=== PATIENT | male | born 1950 | race Caucasian/White ===

== ENCOUNTER 2019-04-15 11:42 | Inpatient (IN) | payer OTHER, BC ==
[~2019-04-15] VITALS: Ht 188 cm; Wt 108.9 kg
[2019-04-15 11:48] VITALS: BP_SYST 141
[2019-04-15] MEDS ORDERED: IPRATROPIUM/ALBUTEROL SULFATE 3 ML AMPUL.NEB (DUONEB) INH ONE (12:00)
[2019-04-15] MEDS ORDERED: SER100 PO (12:12)
[2019-04-15] MEDS ORDERED: FENO160 PO (12:12)
[2019-04-15] MEDS ORDERED: OXYB5TAB11 PO (12:12)
[2019-04-15] MEDS ORDERED: FERR-69 PO (12:12)
[2019-04-15] MEDS ORDERED: CARB-61 PO (12:12)
[2019-04-15] MEDS ORDERED: ASCO500T20 PO (12:12)
[2019-04-15] MEDS ORDERED: MULT-1089 PO (12:12)
[2019-04-15] MEDS ORDERED: BENZ1TAB8 PO (12:12)
[2019-04-15] MEDS ORDERED: PRO40 PO (12:12)
[2019-04-15] MEDS ORDERED: DOCU-144 PO (12:12)
[2019-04-15] MEDS ORDERED: LEVO330T2 PO (12:12)
[2019-04-15 12:19] LABS: BASOPHILS % (AUTO) 0.7 % (0.0-2.0); EOSINOPHILS # (AUTO) 0.2 K/uL (0.0-0.4); EOSINOPHILS % (AUTO) 4.4 % (0.0-4.0); HEMATOCRIT 42.7 % (36-54); HEMOGLOBIN 13.3 g/dL (14.0-18.0); LYMPHOCYTES # (AUTO) 0.9 K/uL (1.0-5.5); LYMPHOCYTES % (AUTO) 20.2 % (20.5-51.5); MEAN CORPUSCULAR HEMOGLOBIN 26 pg (27-31); MEAN CORPUSCULAR HGB CONC 31 % (32-36); MEAN CORPUSCULAR VOLUME 83 fL (79.0-98.0); MONOCYTES # (AUTO) 0.3 K/uL (0.0-1.0); NEUTROPHILS # (AUTO) 3.1 K/uL (1.8-7.7); NEUTROPHILS % (AUTO) 67.7 % (40.0-70.0); PLATELET COUNT (AUTO) 139 K/uL (130-430); RED BLOOD CELL COUNT(AUTO) 5.14 MIL/uL (4.2-6.2); WHITE BLOOD COUNT (AUTO) 4.6 K/uL (4.8-10.8)
[2019-04-15 12:27] LABS: CALCIUM 9.4 mg/dL (8.4-11.0); CREATININE 0.83 mg/dL (0.55-1.30); POTASSIUM 3.8 mmol/L (3.5-5.1)
[2019-04-15 12:33] LABS: ALBUMIN 3.5 g/dL (3.4-4.8); TOTAL BILIRUBIN 0.5 mg/dL (0.0-1.0)
[2019-04-15] MEDS ORDERED: methylPREDNISolone SOD SUCC/PF 62.5 MG/ML VIAL IVP ONE (14:15)
[2019-04-15 14:38] VITALS: BP_SYST 154
[2019-04-15] MEDS ORDERED: LACT10SO6 PO (15:02)
[2019-04-15] MEDS ORDERED: LEVE500T9 PO (15:02)
[2019-04-15] MEDS ORDERED: D5W 1,000 ML IV PRN (15:36)
[2019-04-15] MEDS ORDERED: cloNIDine HCL 0.1 MG TABLET PO PRN (15:45)
[2019-04-15] MEDS ORDERED: guaiFENesin 200 MG/10 ML UDC PO PRN (15:45)
[2019-04-15] MEDS ORDERED: ZOLPIDEM TARTRATE 5 MG TABLET PO PRN (15:45)
[2019-04-15] MEDS ORDERED: DEXTROSE 50% JECT 50 ML DISP.SYRIN IVP PRN (15:45)
[2019-04-15] MEDS ORDERED: GLUCOSE 15 GM GEL (in 37.5 GM TUBE) PO PRN (15:45)
[2019-04-15 16:30] VITALS: BP_SYST 154
[2019-04-15] MEDS: LEVOFLOXACIN 500 MG/D5W 100 ML IV SCH (16:52)
[2019-04-15] MEDS: NACL 0.9% 1,000 ML IV SCH (16:53)
[2019-04-15 16:55] VITALS: BP_SYST 144
[2019-04-15] MEDS: LACTULOSE 20 GM/30 ML UDC PO SCH ×2 (17:03→23:04)
[2019-04-15] MEDS: INSULIN LISPRO SLIDING SCALE 100 UNITS/ML VIAL (humaLOG) SUBCUT PRN ×2 (17:09→23:16)
[2019-04-15] MEDS: ALBUTEROL SULFATE 0.083% 2.5 MG/3 ML VIAL.NEB INH SCH (19:50)
[2019-04-15] MEDS: IPRATROPIUM BROM 0.5 MG/2.5 ML VIAL.NEB (ATROVENT) INH SCH (19:50)
[2019-04-15 20:00] VITALS: BP_SYST 145
[2019-04-15] MEDS ORDERED: FENOFIBRATE 160 MG TABLET PO SCH (21:00)
[2019-04-15] MEDS: DOCUSATE SODIUM 100 MG CAPSULE PO SCH (23:04)
[2019-04-15] MEDS: PANTOPRAZOLE SODIUM 40 MG TAB PO SCH (23:04)
[2019-04-15] MEDS: BENZTROPINE MESYLATE 1 MG TABLET PO SCH (23:05)
[2019-04-15] MEDS: methylPREDNISolone SOD SUCC/PF 62.5 MG/ML VIAL IVP SCH (23:05)
[2019-04-15] MEDS: FENOFIBRATE NANOCRYSTALLIZED 48 MG TABLET (TRICOR) PO SCH (23:07)
[2019-04-15] MEDS: levETIRAcetam 500 MG TABLET PO SCH (23:07)
[2019-04-15] MEDS: OXYBUTYNIN CHLORIDE 5 MG TABLET PO SCH (23:07)
[2019-04-15] MEDS: ASCORBIC ACID 500 MG TABLET PO SCH (23:08)
[2019-04-15] MEDS: CARBIDOPA/LEVODOPA 25/100 MG TABLET PO SCH (23:08)
[2019-04-15] MEDS: QUEtiapine FUMARATE 100 MG TABLET PO SCH (23:08)
[2019-04-15] MEDS: FERROUS SULFATE 325 MG TABLET.DR PO SCH (23:08)
[2019-04-16 01:52] VITALS: BP_SYST 144
[2019-04-16] MEDS: methylPREDNISolone SOD SUCC/PF 62.5 MG/ML VIAL IVP SCH ×3 (06:28→21:54)
[2019-04-16] MEDS: NACL 0.9% 1,000 ML IV SCH ×2 (06:29→21:53)
[2019-04-16] MEDS: INSULIN LISPRO SLIDING SCALE 100 UNITS/ML VIAL (humaLOG) SUBCUT PRN ×2 (06:34→21:52)
[2019-04-16 07:06] LABS: BASOPHILS % (AUTO) 0.1 % (0.0-2.0); HEMATOCRIT 42.2 % (36-54); HEMOGLOBIN 13.2 g/dL (14.0-18.0); LYMPHOCYTES # (AUTO) 0.7 K/uL (1.0-5.5); LYMPHOCYTES % (AUTO) 5.9 % (20.5-51.5); MEAN CORPUSCULAR HEMOGLOBIN 26 pg (27-31); MEAN CORPUSCULAR HGB CONC 31 % (32-36); MEAN CORPUSCULAR VOLUME 83 fL (79.0-98.0); MONOCYTES # (AUTO) 0.1 K/uL (0.0-1.0); NEUTROPHILS # (AUTO) 11.3 K/uL (1.8-7.7); PLATELET COUNT (AUTO) 151 K/uL (130-430); RED BLOOD CELL COUNT(AUTO) 5.08 MIL/uL (4.2-6.2); RED CELL DISTRIBUTION WIDTH 22.6 % (9.0-15.0); WHITE BLOOD COUNT (AUTO) 12.2 K/uL (4.8-10.8)
[2019-04-16] MEDS: ALBUTEROL SULFATE 0.083% 2.5 MG/3 ML VIAL.NEB INH SCH ×4 (07:23→20:18)
[2019-04-16] MEDS: IPRATROPIUM BROM 0.5 MG/2.5 ML VIAL.NEB (ATROVENT) INH SCH ×4 (07:23→20:18)
[2019-04-16 08:26] VITALS: BP_SYST 143
[2019-04-16 08:26] LABS: ALBUMIN 3.2 g/dL (3.4-4.8); CREATININE 0.94 mg/dL (0.55-1.30); TOTAL BILIRUBIN 0.4 mg/dL (0.0-1.0)
[2019-04-16 08:46] LABS: CALCIUM 8.7 mg/dL (8.4-11.0)
[2019-04-16] MEDS: MULTIVITAMINS TAB 1 TABLET PO SCH (09:53)
[2019-04-16] MEDS: FERROUS SULFATE 325 MG TABLET.DR PO SCH ×2 (09:53→21:54)
[2019-04-16] MEDS: CARBIDOPA/LEVODOPA 25/100 MG TABLET PO SCH ×3 (09:53→21:53)
[2019-04-16] MEDS: ASCORBIC ACID 500 MG TABLET PO SCH ×2 (09:53→21:53)
[2019-04-16] MEDS: BENZTROPINE MESYLATE 1 MG TABLET PO SCH ×2 (09:53→21:53)
[2019-04-16] MEDS: levETIRAcetam 500 MG TABLET PO SCH ×2 (09:53→21:54)
[2019-04-16] MEDS: LACTULOSE 20 GM/30 ML UDC PO SCH ×4 (09:53→21:53)
[2019-04-16] MEDS: PANTOPRAZOLE SODIUM 40 MG TAB PO SCH ×2 (09:53→21:54)
[2019-04-16] MEDS: QUEtiapine FUMARATE 100 MG TABLET PO SCH ×2 (09:53→21:54)
[2019-04-16] MEDS: DOCUSATE SODIUM 100 MG CAPSULE PO SCH ×2 (09:53→21:54)
[2019-04-16] MEDS: LEVOFLOXACIN 500 MG/D5W 100 ML IV SCH (09:53)
[2019-04-16] MEDS ORDERED: LEVOFLOXACIN 500 MG TABLET PO SCH (10:00)
[2019-04-16] MEDS ORDERED: BENAZEPRIL HCL 10 MG TABLET (LOTENSIN) PO ONE (11:15)
[2019-04-16 12:30] VITALS: BP_SYST 160
[2019-04-16 16:30] VITALS: BP_SYST 154
[2019-04-16 20:00] VITALS: BP_SYST 132
[2019-04-16] MEDS: OXYBUTYNIN CHLORIDE 5 MG TABLET PO SCH (21:53)
[2019-04-16] MEDS: FENOFIBRATE NANOCRYSTALLIZED 48 MG TABLET (TRICOR) PO SCH (21:53)
[2019-04-17 00:41] VITALS: BP_SYST 96
[2019-04-17] MEDS: methylPREDNISolone SOD SUCC/PF 62.5 MG/ML VIAL IVP SCH ×3 (06:24→22:30)
[2019-04-17 07:06] LABS: BASOPHILS % (AUTO) 0.1 % (0.0-2.0); HEMATOCRIT 40.6 % (36-54); HEMOGLOBIN 12.5 g/dL (14.0-18.0); LYMPHOCYTES # (AUTO) 0.7 K/uL (1.0-5.5); LYMPHOCYTES % (AUTO) 3.8 % (20.5-51.5); MEAN CORPUSCULAR HEMOGLOBIN 26 pg (27-31); MEAN CORPUSCULAR HGB CONC 31 % (32-36); MEAN CORPUSCULAR VOLUME 84 fL (79.0-98.0); MONOCYTES # (AUTO) 0.6 K/uL (0.0-1.0); MONOCYTES % (AUTO) 2.9 % (1.7-9.3); NEUTROPHILS # (AUTO) 17.9 K/uL (1.8-7.7); NEUTROPHILS % (AUTO) 93.2 % (40.0-70.0); PLATELET COUNT (AUTO) 137 K/uL (130-430); RED BLOOD CELL COUNT(AUTO) 4.82 MIL/uL (4.2-6.2); RED CELL DISTRIBUTION WIDTH 23.7 % (9.0-15.0); WHITE BLOOD COUNT (AUTO) 19.2 K/uL (4.8-10.8)
[2019-04-17] MEDS: ALBUTEROL SULFATE 0.083% 2.5 MG/3 ML VIAL.NEB INH SCH ×4 (07:16→20:02)
[2019-04-17] MEDS: IPRATROPIUM BROM 0.5 MG/2.5 ML VIAL.NEB (ATROVENT) INH SCH ×4 (07:16→20:02)
[2019-04-17 07:43] LABS: CALCIUM 8.8 mg/dL (8.4-11.0); CREATININE 0.98 mg/dL (0.55-1.30); POTASSIUM 4.8 mmol/L (3.5-5.1)
[2019-04-17 08:23] VITALS: BP_SYST 143
[2019-04-17] MEDS: LEVOFLOXACIN 500 MG/D5W 100 ML IV SCH (09:36)
[2019-04-17] MEDS: DOCUSATE SODIUM 100 MG CAPSULE PO SCH ×2 (10:00→22:31)
[2019-04-17] MEDS: LACTULOSE 20 GM/30 ML UDC PO SCH ×4 (10:00→22:30)
[2019-04-17] MEDS: MULTIVITAMINS TAB 1 TABLET PO SCH (10:01)
[2019-04-17] MEDS: CARBIDOPA/LEVODOPA 25/100 MG TABLET PO SCH ×3 (10:01→22:31)
[2019-04-17] MEDS: levETIRAcetam 500 MG TABLET PO SCH ×2 (10:01→22:31)
[2019-04-17] MEDS: BENZTROPINE MESYLATE 1 MG TABLET PO SCH ×2 (10:01→22:31)
[2019-04-17] MEDS: QUEtiapine FUMARATE 100 MG TABLET PO SCH ×2 (10:01→22:31)
[2019-04-17] MEDS: ASCORBIC ACID 500 MG TABLET PO SCH ×2 (10:01→22:30)
[2019-04-17] MEDS: FERROUS SULFATE 325 MG TABLET.DR PO SCH ×2 (10:01→22:30)
[2019-04-17] MEDS: PANTOPRAZOLE SODIUM 40 MG TAB PO SCH ×2 (10:01→22:31)
[2019-04-17] MEDS: BENAZEPRIL HCL 10 MG TABLET (LOTENSIN) PO SCH (10:03)
[2019-04-17 11:19] VITALS: BP_SYST 123
[2019-04-17] MEDS: INSULIN LISPRO SLIDING SCALE 100 UNITS/ML VIAL (humaLOG) SUBCUT PRN ×2 (11:29→22:33)
[2019-04-17 17:14] VITALS: BP_SYST 124
[2019-04-17 20:00] VITALS: BP_SYST 130
[2019-04-17] MEDS: FENOFIBRATE NANOCRYSTALLIZED 48 MG TABLET (TRICOR) PO SCH (22:31)
[2019-04-17] MEDS: OXYBUTYNIN CHLORIDE 5 MG TABLET PO SCH (22:31)
[2019-04-17] MEDS: NACL 0.9% 1,000 ML IV SCH (22:44)
[2019-04-18 00:31] VITALS: BP_SYST 137
[2019-04-18] MEDS: methylPREDNISolone SOD SUCC/PF 62.5 MG/ML VIAL IVP SCH ×3 (05:38→21:20)
[2019-04-18 06:08] LABS: CALCIUM 8.4 mg/dL (8.4-11.0); CREATININE 1.03 mg/dL (0.55-1.30); POTASSIUM 4.4 mmol/L (3.5-5.1)
[2019-04-18 06:12] LABS: BASOPHILS % (AUTO) 0.1 % (0.0-2.0); HEMATOCRIT 41.4 % (36-54); HEMOGLOBIN 12.7 g/dL (14.0-18.0); LYMPHOCYTES # (AUTO) 0.6 K/uL (1.0-5.5); LYMPHOCYTES % (AUTO) 4.3 % (20.5-51.5); MEAN CORPUSCULAR HEMOGLOBIN 26 pg (27-31); MEAN CORPUSCULAR HGB CONC 31 % (32-36); MEAN CORPUSCULAR VOLUME 84 fL (79.0-98.0); MONOCYTES # (AUTO) 0.5 K/uL (0.0-1.0); MONOCYTES % (AUTO) 3.1 % (1.7-9.3); NEUTROPHILS # (AUTO) 13.8 K/uL (1.8-7.7); NEUTROPHILS % (AUTO) 92.5 % (40.0-70.0); PLATELET COUNT (AUTO) 129 K/uL (130-430); RED BLOOD CELL COUNT(AUTO) 4.95 MIL/uL (4.2-6.2); RED CELL DISTRIBUTION WIDTH 23.5 % (9.0-15.0); WHITE BLOOD COUNT (AUTO) 14.9 K/uL (4.8-10.8)
[2019-04-18] MEDS: ALBUTEROL SULFATE 0.083% 2.5 MG/3 ML VIAL.NEB INH SCH ×5 (07:27→20:00)
[2019-04-18] MEDS: IPRATROPIUM BROM 0.5 MG/2.5 ML VIAL.NEB (ATROVENT) INH SCH ×5 (07:28→20:00)
[2019-04-18 08:00] VITALS: BP_SYST 130
[2019-04-18] MEDS: levETIRAcetam 500 MG TABLET PO SCH ×2 (10:29→21:18)
[2019-04-18] MEDS: FERROUS SULFATE 325 MG TABLET.DR PO SCH ×2 (10:29→21:18)
[2019-04-18] MEDS: BENZTROPINE MESYLATE 1 MG TABLET PO SCH ×2 (10:29→21:19)
[2019-04-18] MEDS: LEVOFLOXACIN 500 MG/D5W 100 ML IV SCH (10:29)
[2019-04-18] MEDS: ASCORBIC ACID 500 MG TABLET PO SCH ×2 (10:29→21:19)
[2019-04-18] MEDS: LACTULOSE 20 GM/30 ML UDC PO SCH ×4 (10:29→21:20)
[2019-04-18] MEDS: DOCUSATE SODIUM 100 MG CAPSULE PO SCH ×2 (10:29→21:19)
[2019-04-18] MEDS: PANTOPRAZOLE SODIUM 40 MG TAB PO SCH ×2 (10:29→21:19)
[2019-04-18] MEDS: MULTIVITAMINS TAB 1 TABLET PO SCH (10:29)
[2019-04-18] MEDS: CARBIDOPA/LEVODOPA 25/100 MG TABLET PO SCH ×3 (10:30→21:19)
[2019-04-18] MEDS: QUEtiapine FUMARATE 100 MG TABLET PO SCH ×2 (10:30→21:19)
[2019-04-18] MEDS: BENAZEPRIL HCL 10 MG TABLET (LOTENSIN) PO SCH (10:31)
[2019-04-18] MEDS: INSULIN LISPRO SLIDING SCALE 100 UNITS/ML VIAL (humaLOG) SUBCUT PRN ×2 (10:43→21:30)
[2019-04-18 11:53] VITALS: BP_SYST 137
[2019-04-18 18:05] VITALS: BP_SYST 125
[2019-04-18 20:04] VITALS: BP_SYST 133
[2019-04-18] MEDS: FENOFIBRATE NANOCRYSTALLIZED 48 MG TABLET (TRICOR) PO SCH (21:18)
[2019-04-18] MEDS: OXYBUTYNIN CHLORIDE 5 MG TABLET PO SCH (21:19)
[2019-04-18] MEDS: ACETAMINOPHEN 325 MG TABLET PO PRN (21:19)
[2019-04-18] MEDS: NACL 0.9% 1,000 ML IV SCH (22:15)
[2019-04-18 22:58] VITALS: BP_SYST 121
[2019-04-19] MEDS: methylPREDNISolone SOD SUCC/PF 62.5 MG/ML VIAL IVP SCH (05:30)
[2019-04-19] MEDS: ALBUTEROL SULFATE 0.083% 2.5 MG/3 ML VIAL.NEB INH SCH ×4 (07:23→19:47)
[2019-04-19] MEDS: IPRATROPIUM BROM 0.5 MG/2.5 ML VIAL.NEB (ATROVENT) INH SCH ×4 (07:24→19:47)
[2019-04-19 07:50] VITALS: BP_SYST 122
[2019-04-19] MEDS: LACTULOSE 20 GM/30 ML UDC PO SCH ×4 (09:18→22:14)
[2019-04-19] MEDS: NACL 0.9% 1,000 ML IV SCH (09:18)
[2019-04-19] MEDS: FERROUS SULFATE 325 MG TABLET.DR PO SCH ×2 (09:19→22:13)
[2019-04-19] MEDS: DOCUSATE SODIUM 100 MG CAPSULE PO SCH ×2 (09:19→22:14)
[2019-04-19] MEDS: PANTOPRAZOLE SODIUM 40 MG TAB PO SCH ×2 (09:19→22:14)
[2019-04-19] MEDS: ASCORBIC ACID 500 MG TABLET PO SCH ×2 (09:19→22:13)
[2019-04-19] MEDS: MULTIVITAMINS TAB 1 TABLET PO SCH (09:19)
[2019-04-19] MEDS: CARBIDOPA/LEVODOPA 25/100 MG TABLET PO SCH ×3 (09:19→22:14)
[2019-04-19] MEDS: LEVOFLOXACIN 500 MG/D5W 100 ML IV SCH (09:19)
[2019-04-19] MEDS: BENZTROPINE MESYLATE 1 MG TABLET PO SCH ×2 (09:19→22:14)
[2019-04-19] MEDS: QUEtiapine FUMARATE 100 MG TABLET PO SCH ×2 (09:19→22:14)
[2019-04-19] MEDS: levETIRAcetam 500 MG TABLET PO SCH ×2 (09:19→22:13)
[2019-04-19] MEDS: BENAZEPRIL HCL 10 MG TABLET (LOTENSIN) PO SCH (09:20)
[2019-04-19] MEDS: INSULIN LISPRO SLIDING SCALE 100 UNITS/ML VIAL (humaLOG) SUBCUT PRN ×2 (09:27→22:26)
[2019-04-19] MEDS ORDERED: VANCOMYCIN HCL 1,000 MG in NS 250 ML IV SCH (10:45)
[2019-04-19 12:52] VITALS: BP_SYST 122
[2019-04-19] MEDS: VANCOMYCIN HCL 1,000 MG in NS 250 ML IV SCH ×2 (12:58→20:08)
[2019-04-19 15:05] VITALS: BP_SYST 122
[2019-04-19] MEDS: ACETAMINOPHEN 325 MG TABLET PO PRN (15:09)
[2019-04-19 16:51] VITALS: BP_SYST 126
[2019-04-19 20:11] VITALS: BP_SYST 128
[2019-04-19] MEDS: methylPREDNISolone SOD SUCC 40 MG/ML VIAL IVP SCH (22:13)
[2019-04-19] MEDS: FENOFIBRATE NANOCRYSTALLIZED 48 MG TABLET (TRICOR) PO SCH (22:13)
[2019-04-19] MEDS: OXYBUTYNIN CHLORIDE 5 MG TABLET PO SCH (22:13)
[2019-04-20 00:16] VITALS: BP_SYST 125
[2019-04-20] MEDS: VANCOMYCIN HCL 1,000 MG in NS 250 ML IV SCH (04:17)
[2019-04-20] MEDS: IPRATROPIUM BROM 0.5 MG/2.5 ML VIAL.NEB (ATROVENT) INH SCH ×3 (07:24→18:50)
[2019-04-20] MEDS: ALBUTEROL SULFATE 0.083% 2.5 MG/3 ML VIAL.NEB INH SCH ×3 (07:24→18:50)
[2019-04-20 07:50] VITALS: BP_SYST 133
[2019-04-20 09:06] LABS: BASOPHILS % (AUTO) 0.4 % (0.0-2.0); HEMATOCRIT 41.4 % (36-54); HEMOGLOBIN 12.9 g/dL (14.0-18.0); LYMPHOCYTES # (AUTO) 0.4 K/uL (1.0-5.5); LYMPHOCYTES % (AUTO) 4.2 % (20.5-51.5); MEAN CORPUSCULAR HEMOGLOBIN 27 pg (27-31); MEAN CORPUSCULAR HGB CONC 31 % (32-36); MEAN CORPUSCULAR VOLUME 85 fL (79.0-98.0); MONOCYTES # (AUTO) 0.6 K/uL (0.0-1.0); MONOCYTES % (AUTO) 5.8 % (1.7-9.3); NEUTROPHILS # (AUTO) 9.3 K/uL (1.8-7.7); NEUTROPHILS % (AUTO) 89.6 % (40.0-70.0); PLATELET COUNT (AUTO) 60 K/uL (130-430); RED BLOOD CELL COUNT(AUTO) 4.87 MIL/uL (4.2-6.2); RED CELL DISTRIBUTION WIDTH 23.7 % (9.0-15.0); WHITE BLOOD COUNT (AUTO) 10.4 K/uL (4.8-10.8)
[2019-04-20 09:27] LABS: CALCIUM 8.1 mg/dL (8.4-11.0); CREATININE 1.11 mg/dL (0.55-1.30); POTASSIUM 4.1 mmol/L (3.5-5.1)
[2019-04-20] MEDS: DOCUSATE SODIUM 100 MG CAPSULE PO SCH ×2 (10:04→22:16)
[2019-04-20] MEDS: PANTOPRAZOLE SODIUM 40 MG TAB PO SCH ×2 (10:04→22:16)
[2019-04-20] MEDS: MULTIVITAMINS TAB 1 TABLET PO SCH (10:04)
[2019-04-20] MEDS: CARBIDOPA/LEVODOPA 25/100 MG TABLET PO SCH ×3 (10:04→22:16)
[2019-04-20] MEDS: levETIRAcetam 500 MG TABLET PO SCH ×2 (10:04→22:16)
[2019-04-20] MEDS: methylPREDNISolone SOD SUCC 40 MG/ML VIAL IVP SCH ×2 (10:04→22:16)
[2019-04-20] MEDS: QUEtiapine FUMARATE 100 MG TABLET PO SCH ×2 (10:04→22:16)
[2019-04-20] MEDS: BENZTROPINE MESYLATE 1 MG TABLET PO SCH ×2 (10:04→22:16)
[2019-04-20] MEDS: FERROUS SULFATE 325 MG TABLET.DR PO SCH ×2 (10:04→22:16)
[2019-04-20] MEDS: ASCORBIC ACID 500 MG TABLET PO SCH ×2 (10:05→22:16)
[2019-04-20] MEDS: BENAZEPRIL HCL 10 MG TABLET (LOTENSIN) PO SCH (10:05)
[2019-04-20] MEDS: LACTULOSE 20 GM/30 ML UDC PO SCH ×4 (10:06→22:16)
[2019-04-20] MEDS: LEVOFLOXACIN 500 MG/D5W 100 ML IV SCH (10:21)
[2019-04-20] MEDS: INSULIN LISPRO SLIDING SCALE 100 UNITS/ML VIAL (humaLOG) SUBCUT PRN ×2 (10:27→22:30)
[2019-04-20] MEDS: VANCOMYCIN HCL 1,250 MG in NS 250 ML IV SCH ×2 (12:24→20:23)
[2019-04-20 12:37] VITALS: BP_SYST 133
[2019-04-20] MEDS ORDERED: FUROSEMIDE 40 MG/4 ML VIAL IVP ONE (12:45)
[2019-04-20] MEDS ORDERED: FUROSEMIDE 40 MG/4 ML VIAL ONE (12:51)
[2019-04-20] MEDS ORDERED: NITROGLYCERIN 0.4 MG TAB.SUBL SL PRN (13:30)
[2019-04-20] MEDS ORDERED: DILTIAZEM HCL 60 MG TABLET PO ONE (15:30)
[2019-04-20 16:53] VITALS: BP_SYST 108
[2019-04-20 20:19] VITALS: BP_SYST 141
[2019-04-20] MEDS: OXYBUTYNIN CHLORIDE 5 MG TABLET PO SCH (22:16)
[2019-04-20] MEDS: FENOFIBRATE NANOCRYSTALLIZED 48 MG TABLET (TRICOR) PO SCH (22:16)
[2019-04-21] VITALS (16 sets, daily range): BP systolic 97–155
[2019-04-21] MEDS ORDERED: FUROSEMIDE 40 MG/4 ML VIAL IVP SCH (00:10)
[2019-04-21] MEDS: DILTIAZEM HCL 60 MG TABLET PO SCH ×2 (00:15→06:05)
[2019-04-21] MEDS ORDERED: FUROSEMIDE 40 MG/4 ML VIAL ONE (00:17)
[2019-04-21] MEDS: VANCOMYCIN HCL 1,250 MG in NS 250 ML IV SCH ×2 (03:56→20:49)
[2019-04-21 06:35] LABS: BASOPHILS % (AUTO) 0.1 % (0.0-2.0); HEMATOCRIT 40.1 % (36-54); HEMOGLOBIN 12.5 g/dL (14.0-18.0); LYMPHOCYTES # (AUTO) 0.4 K/uL (1.0-5.5); LYMPHOCYTES % (AUTO) 3.3 % (20.5-51.5); MEAN CORPUSCULAR HEMOGLOBIN 26 pg (27-31); MEAN CORPUSCULAR HGB CONC 31 % (32-36); MEAN CORPUSCULAR VOLUME 85 fL (79.0-98.0); MONOCYTES # (AUTO) 0.9 K/uL (0.0-1.0); MONOCYTES % (AUTO) 7.9 % (1.7-9.3); NEUTROPHILS # (AUTO) 9.9 K/uL (1.8-7.7); NEUTROPHILS % (AUTO) 88.7 % (40.0-70.0); PLATELET COUNT (AUTO) 67 K/uL (130-430); RED BLOOD CELL COUNT(AUTO) 4.73 MIL/uL (4.2-6.2); RED CELL DISTRIBUTION WIDTH 23.8 % (9.0-15.0); WHITE BLOOD COUNT (AUTO) 11.1 K/uL (4.8-10.8)
[2019-04-21 07:10] LABS: CALCIUM 8.3 mg/dL (8.4-11.0); CREATININE 1.22 mg/dL (0.55-1.30); PHOSPHORUS 3.3 mg/dL (2.7-4.5); POTASSIUM 4.6 mmol/L (3.5-5.1)
[2019-04-21] MEDS: ALBUTEROL SULFATE 0.083% 2.5 MG/3 ML VIAL.NEB INH SCH ×3 (07:26→19:31)
[2019-04-21] MEDS: IPRATROPIUM BROM 0.5 MG/2.5 ML VIAL.NEB (ATROVENT) INH SCH ×3 (07:27→19:32)
[2019-04-21] MEDS: FUROSEMIDE 40 MG/4 ML VIAL IVP SCH (08:37)
[2019-04-21] MEDS: methylPREDNISolone SOD SUCC 40 MG/ML VIAL IVP SCH ×3 (08:37→23:41)
[2019-04-21] MEDS ORDERED: LEVOFLOXACIN 500 MG/D5W 100 ML IV SCH (09:00)
[2019-04-21] MEDS ORDERED: MIDAZOLAM HCL 2 MG/2 ML VIAL (VERSED) ONE (10:07)
[2019-04-21] MEDS: MORPHINE 2 MG/ML INJ. SYRINGE IVP PRN ×3 (10:51→20:49)
[2019-04-21] MEDS ORDERED: SUCCINYLCHOLINE CHLORIDE 20 MG/ML(QUELICIN) ONE (10:51)
[2019-04-21] MEDS: LORazepam 2 MG/ML VIAL IM PRN ×4 (10:51→21:21)
[2019-04-21] MEDS ORDERED: cloNIDine HCL 0.1 MG TABLET GT PRN (11:41)
[2019-04-21] MEDS ORDERED: COMMUNICATION ORDER XX ONE (11:45)
[2019-04-21] MEDS ORDERED: BENAZEPRIL HCL 10 MG TABLET (LOTENSIN) GT SCH (11:48)
[2019-04-21] MEDS ORDERED: guaiFENesin 200 MG/10 ML UDC GT PRN (11:51)
[2019-04-21] MEDS ORDERED: methylPREDNISolone SOD SUCC 40 MG/ML VIAL IVP ONE (12:00)
[2019-04-21] MEDS ORDERED: ACETAMINOPHEN 325 MG TABLET PO PRN (12:00)
[2019-04-21] MEDS ORDERED: ACETAMINOPHEN 650 MG/20.3 ML UDC PO PRN (12:00)
[2019-04-21] MEDS: DILTIAZEM HCL 60 MG TABLET GT SCH ×3 (12:57→23:41)
[2019-04-21] MEDS: LACTULOSE 20 GM/30 ML UDC GT SCH ×3 (12:57→20:50)
[2019-04-21] MEDS: INSULIN LISPRO SLIDING SCALE 100 UNITS/ML VIAL (humaLOG) SUBCUT PRN ×2 (12:58→21:24)
[2019-04-21] MEDS: MEROPENEM 500 MG in NS 50 ML IV SCH ×2 (15:32→22:58)
[2019-04-21] MEDS: CARBIDOPA/LEVODOPA 25/100 MG TABLET GT SCH ×2 (15:32→20:50)
[2019-04-21] MEDS: ASCORBIC ACID 500 MG TABLET GT SCH (20:49)
[2019-04-21] MEDS: BENZTROPINE MESYLATE 1 MG TABLET GT SCH (20:50)
[2019-04-21] MEDS: QUEtiapine FUMARATE 100 MG TABLET GT SCH (20:50)
[2019-04-21] MEDS: DOCUSATE SODIUM 100 MG/10 ML UDC GT SCH (20:50)
[2019-04-21] MEDS: FERROUS SULFATE 300 MG/5 ML UDC GT SCH (20:50)
[2019-04-21] MEDS: LevETIRAcetam 500 MG/5 ML UDC ORAL LIQUID GT SCH (20:51)
[2019-04-21] MEDS: FENOFIBRATE NANOCRYSTALLIZED 48 MG TABLET (TRICOR) GT SCH (20:51)
[2019-04-21] MEDS: OXYBUTYNIN CHLORIDE 5 MG TABLET GT SCH (21:00)
[2019-04-21] MEDS: ACETAMINOPHEN 650 MG/20.3 ML UDC GT PRN (23:00)
[2019-04-22] VITALS (33 sets, daily range): BP systolic 102–129
[2019-04-22] MEDS: methylPREDNISolone SOD SUCC 40 MG/ML VIAL IVP SCH (05:17)
[2019-04-22] MEDS: LORazepam 2 MG/ML VIAL IM PRN ×2 (05:17→08:36)
[2019-04-22] MEDS: MEROPENEM 500 MG in NS 50 ML IV SCH ×3 (05:18→23:12)
[2019-04-22] MEDS: LANSOPRAZOLE 30 MG CAPSULE.DR GT SCH (06:23)
[2019-04-22] MEDS: DILTIAZEM HCL 60 MG TABLET GT SCH ×3 (06:23→17:38)
[2019-04-22] MEDS: MORPHINE 2 MG/ML INJ. SYRINGE IVP PRN ×2 (06:42→21:59)
[2019-04-22 06:54] LABS: BASOPHILS % (AUTO) 0.1 % (0.0-2.0); HEMATOCRIT 37.2 % (36-54); HEMOGLOBIN 11.9 g/dL (14.0-18.0); LYMPHOCYTES # (AUTO) 0.3 K/uL (1.0-5.5); LYMPHOCYTES % (AUTO) 3.8 % (20.5-51.5); MEAN CORPUSCULAR HEMOGLOBIN 27 pg (27-31); MEAN CORPUSCULAR HGB CONC 32 % (32-36); MEAN CORPUSCULAR VOLUME 84 fL (79.0-98.0); MONOCYTES # (AUTO) 0.7 K/uL (0.0-1.0); MONOCYTES % (AUTO) 7.2 % (1.7-9.3); NEUTROPHILS # (AUTO) 8.2 K/uL (1.8-7.7); NEUTROPHILS % (AUTO) 88.9 % (40.0-70.0); PLATELET COUNT (AUTO) 95 K/uL (130-430); RED BLOOD CELL COUNT(AUTO) 4.46 MIL/uL (4.2-6.2); WHITE BLOOD COUNT (AUTO) 9.2 K/uL (4.8-10.8)
[2019-04-22 07:03] LABS: ALANINE AMINOTRANSFERASE 28 U/L (12-78); ALBUMIN 2.2 g/dL (3.4-4.8); ASPARTATE AMINOTRANSFERASE 17 U/L (10-37); CALCIUM 7.9 mg/dL (8.4-11.0); CHLORIDE 100 mmol/L (98-107); CREATININE 1.26 mg/dL (0.55-1.30); GLUCOSE 259 mg/dL (70-99); SODIUM SERUM 137 mmol/L (136-145); TOTAL BILIRUBIN 1.2 mg/dL (0.0-1.0); UREA NITROGEN, BLOOD 49 mg/dL (8-21)
[2019-04-22 07:06] LABS: ANION GAP < 3 (5-15); GFR AFRICAN AMERICAN 74 mL/min (>90)
[2019-04-22] MEDS: ALBUTEROL SULFATE 0.083% 2.5 MG/3 ML VIAL.NEB INH SCH ×3 (07:19→19:21)
[2019-04-22] MEDS: IPRATROPIUM BROM 0.5 MG/2.5 ML VIAL.NEB (ATROVENT) INH SCH ×3 (07:19→19:21)
[2019-04-22] MEDS: FERROUS SULFATE 300 MG/5 ML UDC GT SCH ×2 (08:06→21:29)
[2019-04-22] MEDS: MULTIVITAMINS TAB 1 TABLET GT SCH (08:06)
[2019-04-22] MEDS: DOCUSATE SODIUM 100 MG/10 ML UDC GT SCH ×2 (08:06→21:30)
[2019-04-22] MEDS: ASCORBIC ACID 500 MG TABLET GT SCH ×2 (08:06→21:30)
[2019-04-22] MEDS: QUEtiapine FUMARATE 100 MG TABLET GT SCH ×2 (08:06→21:30)
[2019-04-22] MEDS: LACTULOSE 20 GM/30 ML UDC GT SCH ×4 (08:06→21:30)
[2019-04-22] MEDS: BENZTROPINE MESYLATE 1 MG TABLET GT SCH ×2 (08:07→21:29)
[2019-04-22] MEDS: CARBIDOPA/LEVODOPA 25/100 MG TABLET GT SCH ×3 (08:07→21:29)
[2019-04-22] MEDS: FUROSEMIDE 40 MG/4 ML VIAL IVP SCH (08:08)
[2019-04-22] MEDS: LevETIRAcetam 500 MG/5 ML UDC ORAL LIQUID GT SCH ×2 (08:19→21:30)
[2019-04-22] MEDS: VANCOMYCIN HCL 1,250 MG in NS 250 ML IV SCH ×2 (08:21→21:28)
[2019-04-22] MEDS: INSULIN LISPRO SLIDING SCALE 100 UNITS/ML VIAL (humaLOG) SUBCUT PRN ×2 (10:06→21:33)
[2019-04-22] MEDS: 0.45% NACL 1,000 ML IV SCH (12:15)
[2019-04-22] MEDS: methylPREDNISolone SOD SUCC/PF 62.5 MG/ML VIAL IVP SCH ×3 (12:47→23:56)
[2019-04-22] MEDS: LORazepam 2 MG/ML VIAL IVP PRN ×5 (13:30→23:56)
[2019-04-22] MEDS: OXYBUTYNIN CHLORIDE 5 MG TABLET GT SCH (21:29)
[2019-04-22] MEDS: FENOFIBRATE NANOCRYSTALLIZED 48 MG TABLET (TRICOR) GT SCH (21:29)
[2019-04-23] VITALS (30 sets, daily range): BP systolic 106–138
[2019-04-23] MEDS: MORPHINE 2 MG/ML INJ. SYRINGE IVP PRN (00:04)
[2019-04-23] MEDS: DILTIAZEM HCL 60 MG TABLET GT SCH ×5 (00:21→23:34)
[2019-04-23] MEDS: IPRATROPIUM BROM 0.5 MG/2.5 ML VIAL.NEB (ATROVENT) INH SCH ×4 (00:57→19:42)
[2019-04-23] MEDS: ALBUTEROL SULFATE 0.083% 2.5 MG/3 ML VIAL.NEB INH SCH ×4 (00:57→19:42)
[2019-04-23 05:35] LABS: HEMATOCRIT 38.1 % (36-54); HEMOGLOBIN 12.1 g/dL (14.0-18.0); PLATELET COUNT (AUTO) 111 K/uL (130-430)
[2019-04-23 05:49] LABS: MEAN CORPUSCULAR HEMOGLOBIN 27 pg (27-31); MEAN CORPUSCULAR HGB CONC 32 % (32-36); MEAN CORPUSCULAR VOLUME 84 fL (79.0-98.0); RED BLOOD CELL COUNT(AUTO) 4.53 MIL/uL (4.2-6.2); RED CELL DISTRIBUTION WIDTH 23.7 % (9.0-15.0); WHITE BLOOD COUNT (AUTO) 9.7 K/uL (4.8-10.8)
[2019-04-23 05:55] LABS: CALCIUM 7.8 mg/dL (8.4-11.0); CREATININE 1.21 mg/dL (0.55-1.30); TOTAL BILIRUBIN 1.4 mg/dL (0.0-1.0)
[2019-04-23 06:25] LABS: BAND % (MANUAL) 8 % (0-6); BASOPHILS % (MANUAL) 0 % (0-2); EOSINOPHILS % (MANUAL) 0 % (0-7); LYMPHOCYTES % (MANUAL) 6 % (20-46); MONOCYTES % (MANUAL) 5 % (0-11)
[2019-04-23] MEDS: MEROPENEM 500 MG in NS 50 ML IV SCH ×3 (06:25→21:53)
[2019-04-23] MEDS: methylPREDNISolone SOD SUCC/PF 62.5 MG/ML VIAL IVP SCH (06:26)
[2019-04-23] MEDS: 0.45% NACL 1,000 ML IV SCH (06:26)
[2019-04-23] MEDS: LANSOPRAZOLE 30 MG CAPSULE.DR GT SCH (06:56)
[2019-04-23] MEDS: INSULIN LISPRO SLIDING SCALE 100 UNITS/ML VIAL (humaLOG) SUBCUT PRN ×2 (08:40→21:57)
[2019-04-23] MEDS: LACTULOSE 20 GM/30 ML UDC GT SCH ×4 (08:42→21:52)
[2019-04-23] MEDS: FERROUS SULFATE 300 MG/5 ML UDC GT SCH ×2 (08:42→21:52)
[2019-04-23] MEDS: DOCUSATE SODIUM 100 MG/10 ML UDC GT SCH ×2 (08:42→21:52)
[2019-04-23] MEDS: VANCOMYCIN HCL 1,250 MG in NS 250 ML IV SCH (08:42)
[2019-04-23] MEDS: LevETIRAcetam 500 MG/5 ML UDC ORAL LIQUID GT SCH ×2 (08:43→21:52)
[2019-04-23] MEDS: ASCORBIC ACID 500 MG TABLET GT SCH ×2 (08:43→21:51)
[2019-04-23] MEDS: MULTIVITAMINS TAB 1 TABLET GT SCH (08:43)
[2019-04-23] MEDS: BENZTROPINE MESYLATE 1 MG TABLET GT SCH ×2 (08:43→21:51)
[2019-04-23] MEDS: QUEtiapine FUMARATE 100 MG TABLET GT SCH ×2 (08:44→21:51)
[2019-04-23] MEDS: CARBIDOPA/LEVODOPA 25/100 MG TABLET GT SCH ×3 (08:44→21:51)
[2019-04-23] MEDS: FUROSEMIDE 40 MG/4 ML VIAL IVP SCH (08:44)
[2019-04-23] MEDS: LORazepam 2 MG/ML VIAL IVP PRN ×3 (11:08→16:37)
[2019-04-23] MEDS ORDERED: DOPamine PREMIX 250 ML IV PRN (20:45)
[2019-04-23] MEDS: OXYBUTYNIN CHLORIDE 5 MG TABLET GT SCH (21:51)
[2019-04-23] MEDS: VANCOMYCIN HCL 1,500 MG in NS 250 ML IV SCH (21:52)
[2019-04-23] MEDS: FENOFIBRATE NANOCRYSTALLIZED 48 MG TABLET (TRICOR) GT SCH (21:52)
[2019-04-23] MEDS: methylPREDNISolone SOD SUCC 40 MG/ML VIAL IVP SCH (21:53)
[2019-04-24] VITALS (34 sets, daily range): BP systolic 112–171
[2019-04-24] MEDS: ALBUTEROL SULFATE 0.083% 2.5 MG/3 ML VIAL.NEB INH SCH ×4 (01:04→19:50)
[2019-04-24] MEDS: IPRATROPIUM BROM 0.5 MG/2.5 ML VIAL.NEB (ATROVENT) INH SCH ×4 (01:05→19:51)
[2019-04-24 05:36] LABS: BASOPHILS % (AUTO) 0.3 % (0.0-2.0); EOSINOPHILS % (AUTO) 0.1 % (0.0-4.0); HEMOGLOBIN 12.4 g/dL (14.0-18.0); LYMPHOCYTES # (AUTO) 0.3 K/uL (1.0-5.5); LYMPHOCYTES % (AUTO) 3.1 % (20.5-51.5); MEAN CORPUSCULAR HEMOGLOBIN 26 pg (27-31); MEAN CORPUSCULAR HGB CONC 31 % (32-36); MEAN CORPUSCULAR VOLUME 85 fL (79.0-98.0); MONOCYTES # (AUTO) 0.7 K/uL (0.0-1.0); MONOCYTES % (AUTO) 6.9 % (1.7-9.3); NEUTROPHILS # (AUTO) 9.6 K/uL (1.8-7.7); NEUTROPHILS % (AUTO) 89.6 % (40.0-70.0); PLATELET COUNT (AUTO) 126 K/uL (130-430); RED BLOOD CELL COUNT(AUTO) 4.72 MIL/uL (4.2-6.2); WHITE BLOOD COUNT (AUTO) 10.7 K/uL (4.8-10.8)
[2019-04-24 05:51] LABS: CALCIUM 8.1 mg/dL (8.4-11.0); CREATININE 1.2 mg/dL (0.55-1.30); POTASSIUM 4.4 mmol/L (3.5-5.1)
[2019-04-24] MEDS: MEROPENEM 500 MG in NS 50 ML IV SCH ×3 (05:55→20:59)
[2019-04-24] MEDS: DILTIAZEM HCL 60 MG TABLET GT SCH ×4 (05:55→23:27)
[2019-04-24] MEDS: 0.45% NACL 1,000 ML IV SCH ×2 (05:57→12:54)
[2019-04-24] MEDS: LANSOPRAZOLE 30 MG CAPSULE.DR GT SCH (06:00)
[2019-04-24] MEDS: methylPREDNISolone SOD SUCC 40 MG/ML VIAL IVP SCH ×2 (08:29→20:48)
[2019-04-24] MEDS: QUEtiapine FUMARATE 100 MG TABLET GT SCH (08:29)
[2019-04-24] MEDS: BENZTROPINE MESYLATE 1 MG TABLET GT SCH (08:30)
[2019-04-24] MEDS: ASCORBIC ACID 500 MG TABLET GT SCH (08:30)
[2019-04-24] MEDS: FUROSEMIDE 40 MG/4 ML VIAL IVP SCH (08:30)
[2019-04-24] MEDS: MULTIVITAMINS TAB 1 TABLET GT SCH (08:30)
[2019-04-24] MEDS: LACTULOSE 20 GM/30 ML UDC GT SCH ×4 (08:31→20:48)
[2019-04-24] MEDS: CARBIDOPA/LEVODOPA 25/100 MG TABLET GT SCH ×3 (08:31→20:48)
[2019-04-24] MEDS: DOCUSATE SODIUM 100 MG/10 ML UDC GT SCH ×2 (08:31→20:48)
[2019-04-24] MEDS: LevETIRAcetam 500 MG/5 ML UDC ORAL LIQUID GT SCH ×2 (08:31→20:48)
[2019-04-24] MEDS: FERROUS SULFATE 300 MG/5 ML UDC GT SCH (08:31)
[2019-04-24] MEDS: VANCOMYCIN HCL 1,500 MG in NS 250 ML IV SCH ×2 (08:32→20:50)
[2019-04-24] MEDS: INSULIN LISPRO SLIDING SCALE 100 UNITS/ML VIAL (humaLOG) SUBCUT PRN ×4 (08:39→23:29)
[2019-04-24] MEDS ORDERED: INSULIN GLARGINE 100 UNITS/ML 10 ML VIAL SUBCUT ONE (09:30)
[2019-04-24] MEDS: ACETAMINOPHEN 650 MG/20.3 ML UDC GT PRN ×2 (15:20→18:44)
[2019-04-24] MEDS ORDERED: FLUCONAZOLE 400 mg/ NS 200 ML IV STA (17:04)
[2019-04-24] MEDS ORDERED: IBUPROFEN 400 MG TABLET PO PRN (17:15)
[2019-04-24] MEDS: LORazepam 2 MG/ML VIAL IVP PRN ×2 (20:49→23:27)
[2019-04-25] VITALS (36 sets, daily range): BP systolic 123–171
[2019-04-25] MEDS: ALBUTEROL SULFATE 0.083% 2.5 MG/3 ML VIAL.NEB INH SCH ×4 (01:10→20:19)
[2019-04-25] MEDS: IPRATROPIUM BROM 0.5 MG/2.5 ML VIAL.NEB (ATROVENT) INH SCH ×4 (01:10→20:20)
[2019-04-25] MEDS: LORazepam 2 MG/ML VIAL IVP PRN ×4 (01:18→21:11)
[2019-04-25] MEDS: MEROPENEM 500 MG in NS 50 ML IV SCH ×3 (05:20→21:15)
[2019-04-25] MEDS: DILTIAZEM HCL 60 MG TABLET GT SCH ×3 (05:20→17:11)
[2019-04-25] MEDS: INSULIN LISPRO SLIDING SCALE 100 UNITS/ML VIAL (humaLOG) SUBCUT PRN ×3 (05:24→18:15)
[2019-04-25 05:34] LABS: BASOPHILS % (AUTO) 0.1 % (0.0-2.0); HEMATOCRIT 39.4 % (36-54); HEMOGLOBIN 12.2 g/dL (14.0-18.0); LYMPHOCYTES # (AUTO) 0.5 K/uL (1.0-5.5); LYMPHOCYTES % (AUTO) 3.2 % (20.5-51.5); MEAN CORPUSCULAR HEMOGLOBIN 26 pg (27-31); MEAN CORPUSCULAR HGB CONC 31 % (32-36); MEAN CORPUSCULAR VOLUME 85 fL (79.0-98.0); MONOCYTES # (AUTO) 0.4 K/uL (0.0-1.0); NEUTROPHILS # (AUTO) 13.7 K/uL (1.8-7.7); NEUTROPHILS % (AUTO) 93.7 % (40.0-70.0); PLATELET COUNT (AUTO) 133 K/uL (130-430); RED BLOOD CELL COUNT(AUTO) 4.62 MIL/uL (4.2-6.2); RED CELL DISTRIBUTION WIDTH 23.9 % (9.0-15.0); WHITE BLOOD COUNT (AUTO) 14.6 K/uL (4.8-10.8)
[2019-04-25 05:48] LABS: CALCIUM 8.2 mg/dL (8.4-11.0); CREATININE 1.12 mg/dL (0.55-1.30); POTASSIUM 4.7 mmol/L (3.5-5.1)
[2019-04-25] MEDS: LANSOPRAZOLE 30 MG CAPSULE.DR GT SCH (06:20)
[2019-04-25] MEDS: FUROSEMIDE 40 MG/4 ML VIAL IVP SCH (08:43)
[2019-04-25] MEDS: methylPREDNISolone SOD SUCC 40 MG/ML VIAL IVP SCH ×2 (08:43→21:10)
[2019-04-25] MEDS: LevETIRAcetam 500 MG/5 ML UDC ORAL LIQUID GT SCH ×2 (08:44→21:10)
[2019-04-25] MEDS: LACTULOSE 20 GM/30 ML UDC GT SCH ×4 (08:44→21:11)
[2019-04-25] MEDS: DOCUSATE SODIUM 100 MG/10 ML UDC GT SCH ×2 (08:44→21:10)
[2019-04-25] MEDS: CARBIDOPA/LEVODOPA 25/100 MG TABLET GT SCH ×3 (08:44→21:10)
[2019-04-25] MEDS: MULTIVITAMINS TAB 1 TABLET GT SCH (08:44)
[2019-04-25] MEDS: VANCOMYCIN HCL 1,500 MG in NS 250 ML IV SCH (09:39)
[2019-04-25] MEDS ORDERED: INSULIN GLARGINE 100 UNITS/ML 10 ML VIAL SUBCUT ONE (11:30)
[2019-04-25] MEDS: 0.45% NACL 1,000 ML IV SCH (12:00)
[2019-04-25] MEDS ORDERED: FLUCONAZOLE 400 mg/ NS 200 ML IV SCH (17:00)
[2019-04-25] MEDS: VANCOMYCIN HCL 1,250 MG in NS 250 ML IV SCH (17:11)
[2019-04-25] MEDS: FLUCONAZOLE 200 mg/ NS 100 ML IV SCH (18:34)
[2019-04-25] MEDS: INSULIN GLARGINE 100 UNITS/ML 10 ML VIAL SUBCUT SCH (21:15)
[2019-04-26] VITALS (34 sets, daily range): BP systolic 109–153
[2019-04-26] MEDS: DILTIAZEM HCL 60 MG TABLET GT SCH ×5 (00:35→23:12)
[2019-04-26] MEDS: VANCOMYCIN HCL 1,250 MG in NS 250 ML IV SCH ×3 (00:36→17:36)
[2019-04-26] MEDS: LORazepam 2 MG/ML VIAL IVP PRN ×4 (00:36→22:18)
[2019-04-26] MEDS: INSULIN LISPRO SLIDING SCALE 100 UNITS/ML VIAL (humaLOG) SUBCUT PRN ×5 (00:38→23:21)
[2019-04-26] MEDS: MORPHINE 2 MG/ML INJ. SYRINGE IVP PRN ×3 (01:09→20:27)
[2019-04-26] MEDS: ACETAMINOPHEN 650 MG/20.3 ML UDC GT PRN ×2 (01:09→15:34)
[2019-04-26] MEDS: IPRATROPIUM BROM 0.5 MG/2.5 ML VIAL.NEB (ATROVENT) INH SCH ×4 (01:18→19:35)
[2019-04-26] MEDS: ALBUTEROL SULFATE 0.083% 2.5 MG/3 ML VIAL.NEB INH SCH ×4 (01:19→19:35)
[2019-04-26] MEDS: MEROPENEM 500 MG in NS 50 ML IV SCH ×3 (05:17→21:15)
[2019-04-26 06:20] LABS: ALBUMIN 2.4 g/dL (3.4-4.8); CREATININE 1.17 mg/dL (0.55-1.30); TOTAL BILIRUBIN 1.3 mg/dL (0.0-1.0)
[2019-04-26] MEDS: LANSOPRAZOLE 30 MG CAPSULE.DR GT SCH (06:21)
[2019-04-26 06:26] LABS: POTASSIUM 4.8 mmol/L (3.5-5.1)
[2019-04-26 06:33] LABS: CALCIUM 8.4 mg/dL (8.4-11.0)
[2019-04-26 07:21] LABS: BASOPHILS # (AUTO) 0.1 K/uL (0.0-0.2); BASOPHILS % (AUTO) 0.4 % (0.0-2.0); HEMATOCRIT 44.6 % (36-54); HEMOGLOBIN 13.9 g/dL (14.0-18.0); LYMPHOCYTES # (AUTO) 0.4 K/uL (1.0-5.5); LYMPHOCYTES % (AUTO) 1.6 % (20.5-51.5); MEAN CORPUSCULAR HEMOGLOBIN 27 pg (27-31); MEAN CORPUSCULAR HGB CONC 31 % (32-36); MEAN CORPUSCULAR VOLUME 87 fL (79.0-98.0); MONOCYTES # (AUTO) 0.4 K/uL (0.0-1.0); MONOCYTES % (AUTO) 1.6 % (1.7-9.3); NEUTROPHILS # (AUTO) 24.2 K/uL (1.8-7.7); NEUTROPHILS % (AUTO) 96.4 % (40.0-70.0); PLATELET COUNT (AUTO) 147 K/uL (130-430); RED BLOOD CELL COUNT(AUTO) 5.14 MIL/uL (4.2-6.2); RED CELL DISTRIBUTION WIDTH 23.5 % (9.0-15.0); WHITE BLOOD COUNT (AUTO) 25.1 K/uL (4.8-10.8)
[2019-04-26] MEDS ORDERED: HEPARIN SODIUM,PORCINE 5000 UNITS/ML VIAL ONE (09:40)
[2019-04-26] MEDS ORDERED: MORPHINE 4 MG/ML INJ. SYRINGE IVP PRN (09:44)
[2019-04-26] MEDS ORDERED: LIDOCAINE 2%, 20 ML MDV ONE (09:59)
[2019-04-26] MEDS: INSULIN GLARGINE 100 UNITS/ML 10 ML VIAL SUBCUT SCH ×2 (10:33→20:16)
[2019-04-26] MEDS: DOCUSATE SODIUM 100 MG/10 ML UDC GT SCH ×2 (10:57→20:13)
[2019-04-26] MEDS: LACTULOSE 20 GM/30 ML UDC GT SCH ×4 (10:57→20:13)
[2019-04-26] MEDS: CARBIDOPA/LEVODOPA 25/100 MG TABLET GT SCH ×3 (11:00→20:13)
[2019-04-26] MEDS: LevETIRAcetam 500 MG/5 ML UDC ORAL LIQUID GT SCH ×2 (11:00→20:14)
[2019-04-26] MEDS: MULTIVITAMINS TAB 1 TABLET GT SCH (11:00)
[2019-04-26] MEDS: FUROSEMIDE 40 MG/4 ML VIAL IVP SCH (11:00)
[2019-04-26] MEDS: methylPREDNISolone SOD SUCC 40 MG/ML VIAL IVP SCH ×2 (11:03→20:13)
[2019-04-26] MEDS: 0.45% NACL 1,000 ML IV SCH (13:08)
[2019-04-26] MEDS ORDERED: MILK OF MAGNESIA 30 ML UDC PO ONE (15:30)
[2019-04-26] MEDS: FLUCONAZOLE 200 mg/ NS 100 ML IV SCH (17:35)
[2019-04-27] VITALS (33 sets, daily range): BP systolic 116–139
[2019-04-27] MEDS: VANCOMYCIN HCL 1,250 MG in NS 250 ML IV SCH (00:15)
[2019-04-27] MEDS: MORPHINE 2 MG/ML INJ. SYRINGE IVP PRN ×3 (00:19→14:17)
[2019-04-27] MEDS: ALBUTEROL SULFATE 0.083% 2.5 MG/3 ML VIAL.NEB INH SCH ×4 (00:57→19:59)
[2019-04-27] MEDS: IPRATROPIUM BROM 0.5 MG/2.5 ML VIAL.NEB (ATROVENT) INH SCH ×4 (00:57→19:59)
[2019-04-27] MEDS: LORazepam 2 MG/ML VIAL IVP PRN ×6 (03:59→23:17)
[2019-04-27] MEDS: DILTIAZEM HCL 60 MG TABLET GT SCH ×4 (06:00→23:20)
[2019-04-27] MEDS: LANSOPRAZOLE 30 MG CAPSULE.DR GT SCH (06:16)
[2019-04-27] MEDS: MEROPENEM 500 MG in NS 50 ML IV SCH ×3 (06:17→21:33)
[2019-04-27 06:26] LABS: HEMATOCRIT 38.6 % (36-54); HEMOGLOBIN 11.9 g/dL (14.0-18.0); MEAN CORPUSCULAR HEMOGLOBIN 27 pg (27-31); MEAN CORPUSCULAR HGB CONC 31 % (32-36); MEAN CORPUSCULAR VOLUME 86 fL (79.0-98.0); PLATELET COUNT (AUTO) 103 K/uL (130-430); RED BLOOD CELL COUNT(AUTO) 4.48 MIL/uL (4.2-6.2); RED CELL DISTRIBUTION WIDTH 23.3 % (9.0-15.0)
[2019-04-27] MEDS: INSULIN LISPRO SLIDING SCALE 100 UNITS/ML VIAL (humaLOG) SUBCUT PRN ×4 (06:26→23:22)
[2019-04-27 06:36] LABS: ALANINE AMINOTRANSFERASE 39 U/L (12-78); ALBUMIN 1.8 g/dL (3.4-4.8); ASPARTATE AMINOTRANSFERASE 29 U/L (10-37); CHLORIDE 106 mmol/L (98-107); CREATININE 1.15 mg/dL (0.55-1.30); GLUCOSE 347 mg/dL (70-99); POTASSIUM 5.1 mmol/L (3.5-5.1); SODIUM SERUM 139 mmol/L (136-145); TOTAL BILIRUBIN 1.1 mg/dL (0.0-1.0); UREA NITROGEN, BLOOD 43 mg/dL (8-21)
[2019-04-27 06:39] LABS: ANION GAP < 3 (5-15); GFR AFRICAN AMERICAN 82 mL/min (>90)
[2019-04-27] MEDS: CARBIDOPA/LEVODOPA 25/100 MG TABLET GT SCH ×3 (08:13→20:36)
[2019-04-27] MEDS: MULTIVITAMINS TAB 1 TABLET GT SCH (08:13)
[2019-04-27] MEDS: methylPREDNISolone SOD SUCC 40 MG/ML VIAL IVP SCH ×2 (08:13→20:37)
[2019-04-27] MEDS: LACTULOSE 20 GM/30 ML UDC GT SCH ×4 (08:13→20:36)
[2019-04-27] MEDS: DOCUSATE SODIUM 100 MG/10 ML UDC GT SCH ×2 (08:13→20:36)
[2019-04-27] MEDS: LevETIRAcetam 500 MG/5 ML UDC ORAL LIQUID GT SCH ×2 (08:14→20:15)
[2019-04-27] MEDS: FUROSEMIDE 40 MG/4 ML VIAL IVP SCH (08:14)
[2019-04-27] MEDS: INSULIN GLARGINE 100 UNITS/ML 10 ML VIAL SUBCUT SCH ×2 (08:20→20:41)
[2019-04-27] MEDS ORDERED: MINERAL OIL 133 ML ENEMA RC ONE (10:45)
[2019-04-27 10:56] LABS: BAND % (MANUAL) 8 % (0-6)
[2019-04-27 10:57] LABS: ATYPICAL LYMPHOCYTES % 0 % (0-0); BASOPHILS % (MANUAL) 0 % (0-2); EOSINOPHILS % (MANUAL) 0 % (0-7); LYMPHOCYTES % (MANUAL) 3 % (20-46); MONOCYTES % (MANUAL) 3 % (0-11)
[2019-04-27] MEDS: VANCOMYCIN HCL 1,000 MG in NS 250 ML IV SCH ×2 (11:30→20:14)
[2019-04-27] MEDS: 0.45% NACL 1,000 ML IV SCH (12:00)
[2019-04-27] MEDS: ACETAMINOPHEN 650 MG/20.3 ML UDC GT PRN (12:47)
[2019-04-27] MEDS: FLUCONAZOLE 200 mg/ NS 100 ML IV SCH (17:49)
[2019-04-28] VITALS (36 sets, daily range): BP systolic 123–149
[2019-04-28] MEDS: MORPHINE 2 MG/ML INJ. SYRINGE IVP PRN ×4 (01:34→23:56)
[2019-04-28] MEDS: ALBUTEROL SULFATE 0.083% 2.5 MG/3 ML VIAL.NEB INH SCH ×4 (01:53→19:51)
[2019-04-28] MEDS: IPRATROPIUM BROM 0.5 MG/2.5 ML VIAL.NEB (ATROVENT) INH SCH ×4 (01:53→19:51)
[2019-04-28] MEDS: LORazepam 2 MG/ML VIAL IVP PRN ×7 (03:11→22:53)
[2019-04-28] MEDS: VANCOMYCIN HCL 1,000 MG in NS 250 ML IV SCH ×3 (03:12→20:37)
[2019-04-28] MEDS: ACETAMINOPHEN 650 MG/20.3 ML UDC GT PRN ×2 (03:13→23:06)
[2019-04-28] MEDS: MEROPENEM 500 MG in NS 50 ML IV SCH (05:12)
[2019-04-28] MEDS: INSULIN LISPRO SLIDING SCALE 100 UNITS/ML VIAL (humaLOG) SUBCUT PRN ×4 (05:40→23:10)
[2019-04-28] MEDS: DILTIAZEM HCL 60 MG TABLET GT SCH ×3 (06:00→21:01)
[2019-04-28] MEDS: LANSOPRAZOLE 30 MG CAPSULE.DR GT SCH (06:02)
[2019-04-28 07:14] LABS: BASOPHILS % (AUTO) 0.1 % (0.0-2.0); HEMATOCRIT 36.6 % (36-54); HEMOGLOBIN 11.3 g/dL (14.0-18.0); LYMPHOCYTES # (AUTO) 0.4 K/uL (1.0-5.5); LYMPHOCYTES % (AUTO) 2.5 % (20.5-51.5); MEAN CORPUSCULAR HEMOGLOBIN 27 pg (27-31); MEAN CORPUSCULAR HGB CONC 31 % (32-36); MEAN CORPUSCULAR VOLUME 86 fL (79.0-98.0); MONOCYTES # (AUTO) 0.3 K/uL (0.0-1.0); MONOCYTES % (AUTO) 1.9 % (1.7-9.3); NEUTROPHILS # (AUTO) 15.8 K/uL (1.8-7.7); NEUTROPHILS % (AUTO) 95.5 % (40.0-70.0); PLATELET COUNT (AUTO) 85 K/uL (130-430); RED BLOOD CELL COUNT(AUTO) 4.25 MIL/uL (4.2-6.2); RED CELL DISTRIBUTION WIDTH 23.2 % (9.0-15.0)
[2019-04-28 07:25] LABS: ALANINE AMINOTRANSFERASE 41 U/L (12-78); ALBUMIN 1.4 g/dL (3.4-4.8); ASPARTATE AMINOTRANSFERASE 28 U/L (10-37); CHLORIDE 107 mmol/L (98-107); CREATININE 1.04 mg/dL (0.55-1.30); GLUCOSE 317 mg/dL (70-99); POTASSIUM 4.3 mmol/L (3.5-5.1); SODIUM SERUM 138 mmol/L (136-145); TOTAL BILIRUBIN 0.9 mg/dL (0.0-1.0); UREA NITROGEN, BLOOD 42 mg/dL (8-21)
[2019-04-28 07:26] LABS: ANION GAP < 3 (5-15); GFR AFRICAN AMERICAN 92 mL/min (>90)
[2019-04-28 07:56] LABS: WHITE BLOOD COUNT (AUTO) 16.6 K/uL (4.8-10.8)
[2019-04-28] MEDS: INSULIN GLARGINE 100 UNITS/ML 10 ML VIAL SUBCUT SCH ×2 (08:38→20:42)
[2019-04-28] MEDS: methylPREDNISolone SOD SUCC 40 MG/ML VIAL IVP SCH (08:38)
[2019-04-28] MEDS: FUROSEMIDE 40 MG/4 ML VIAL IVP SCH (08:40)
[2019-04-28] MEDS: CARBIDOPA/LEVODOPA 25/100 MG TABLET GT SCH ×3 (08:41→20:38)
[2019-04-28] MEDS: LevETIRAcetam 500 MG/5 ML UDC ORAL LIQUID GT SCH ×2 (08:41→20:43)
[2019-04-28] MEDS: DOCUSATE SODIUM 100 MG/10 ML UDC GT SCH ×2 (08:41→20:38)
[2019-04-28] MEDS: LACTULOSE 20 GM/30 ML UDC GT SCH ×4 (08:41→20:38)
[2019-04-28] MEDS: MULTIVITAMINS TAB 1 TABLET GT SCH (08:42)
[2019-04-28 08:49] LABS: CALCIUM 7.2 mg/dL (8.4-11.0)
[2019-04-28] MEDS ORDERED: ENOXAPARIN SODIUM 40 MG/0.4 ML SYRINGE SUBCUT SCH (10:15)
[2019-04-28] MEDS: 0.45% NACL 1,000 ML IV SCH (12:19)
[2019-04-28] MEDS: PREDNISONE 20 MG TABLET PO SCH (17:25)
[2019-04-28] MEDS: FLUCONAZOLE 200 mg/ NS 100 ML IV SCH (17:26)
[2019-04-29] VITALS (27 sets, daily range): BP systolic 86–142
[2019-04-29] MEDS: ALBUTEROL SULFATE 0.083% 2.5 MG/3 ML VIAL.NEB INH SCH ×4 (00:15→19:15)
[2019-04-29] MEDS: IPRATROPIUM BROM 0.5 MG/2.5 ML VIAL.NEB (ATROVENT) INH SCH ×4 (00:15→19:15)
[2019-04-29] MEDS: LORazepam 2 MG/ML VIAL IVP PRN ×7 (00:17→19:51)
[2019-04-29] MEDS: MORPHINE 2 MG/ML INJ. SYRINGE IVP PRN ×3 (01:38→20:08)
[2019-04-29] MEDS: VANCOMYCIN HCL 1,000 MG in NS 250 ML IV SCH ×3 (03:40→19:57)
[2019-04-29] MEDS: DILTIAZEM HCL 60 MG TABLET GT SCH ×2 (05:32→14:25)
[2019-04-29] MEDS: INSULIN LISPRO SLIDING SCALE 100 UNITS/ML VIAL (humaLOG) SUBCUT PRN ×3 (05:42→18:03)
[2019-04-29 05:50] LABS: BASOPHILS # (AUTO) 0.1 K/uL (0.0-0.2); BASOPHILS % (AUTO) 0.5 % (0.0-2.0); EOSINOPHILS % (AUTO) 0.1 % (0.0-4.0); HEMATOCRIT 41.5 % (36-54); HEMOGLOBIN 12.9 g/dL (14.0-18.0); LYMPHOCYTES # (AUTO) 0.8 K/uL (1.0-5.5); LYMPHOCYTES % (AUTO) 3.9 % (20.5-51.5); MEAN CORPUSCULAR HEMOGLOBIN 27 pg (27-31); MEAN CORPUSCULAR HGB CONC 31 % (32-36); MEAN CORPUSCULAR VOLUME 86 fL (79.0-98.0); MONOCYTES # (AUTO) 0.5 K/uL (0.0-1.0); MONOCYTES % (AUTO) 2.9 % (1.7-9.3); NEUTROPHILS # (AUTO) 17.7 K/uL (1.8-7.7); NEUTROPHILS % (AUTO) 92.6 % (40.0-70.0); PLATELET COUNT (AUTO) 91 K/uL (130-430); RED BLOOD CELL COUNT(AUTO) 4.81 MIL/uL (4.2-6.2); RED CELL DISTRIBUTION WIDTH 23.2 % (9.0-15.0); WHITE BLOOD COUNT (AUTO) 19.1 K/uL (4.8-10.8)
[2019-04-29 06:02] LABS: CREATININE 1.22 mg/dL (0.55-1.30); POTASSIUM 4.7 mmol/L (3.5-5.1)
[2019-04-29] MEDS: LANSOPRAZOLE 30 MG CAPSULE.DR GT SCH (06:11)
[2019-04-29 06:31] LABS: CALCIUM 8.1 mg/dL (8.4-11.0)
[2019-04-29] MEDS: INSULIN GLARGINE 100 UNITS/ML 10 ML VIAL SUBCUT SCH (09:36)
[2019-04-29] MEDS: CARBIDOPA/LEVODOPA 25/100 MG TABLET GT SCH ×2 (09:37→14:25)
[2019-04-29] MEDS: PREDNISONE 20 MG TABLET PO SCH ×2 (09:37→17:48)
[2019-04-29] MEDS: MULTIVITAMINS TAB 1 TABLET GT SCH (09:37)
[2019-04-29] MEDS: LACTULOSE 20 GM/30 ML UDC GT SCH ×3 (09:38→17:47)
[2019-04-29] MEDS: LevETIRAcetam 500 MG/5 ML UDC ORAL LIQUID GT SCH (09:38)
[2019-04-29] MEDS: FUROSEMIDE 40 MG/4 ML VIAL IVP SCH (09:38)
[2019-04-29] MEDS: DOCUSATE SODIUM 100 MG/10 ML UDC GT SCH (09:39)
[2019-04-29] MEDS ORDERED: LEVOFLOXACIN 500 MG/D5W 100 ML IV SCH (11:30)
[2019-04-29] MEDS: 0.45% NACL 1,000 ML IV SCH (12:11)
[2019-04-29] MEDS: ACETAMINOPHEN 650 MG/20.3 ML UDC GT PRN ×2 (12:19→16:13)
[2019-04-29] MEDS: FLUCONAZOLE 200 mg/ NS 100 ML IV SCH (17:48)
[2019-04-29] MEDS ORDERED: EPINEPHrine JECT 1 MG/10 ML SYR IVP ONE (20:39)
[2019-04-29] MEDS ORDERED: FUROSEMIDE 40 MG/4 ML VIAL IVP SCH (21:00)
== END 2019-04-29 20:40 | disposition expired | DRG 870 ==
LOC: SED 11:42 → SMU 14:06 → STU 04-20 10:00 → SIC 04-21 09:37
PROVIDERS: ADMIT Internal Medicine; ATTEND Internal Medicine
PROC: 5A1955Z Respiratory Ventilation, Greater than 96 Consecutive Hours (ICD-10-PCS; principal; 2019-04-21)
PROC: 0BH17EZ Insertion of Endotracheal Airway into Trachea, Via Natural or Artificial Opening (ICD-10-PCS; 2019-04-21)
PROC: 02HV33Z Insertion of Infusion Device into Superior Vena Cava, Percutaneous Approach (ICD-10-PCS; 2019-04-21)
PROC: B548ZZA Ultrasonography of Superior Vena Cava, Guidance (ICD-10-PCS; 2019-04-21)
PROC: 0W9930Z Drainage of Right Pleural Cavity with Drainage Device, Percutaneous Approach (ICD-10-PCS; 2019-04-26)
DX: A41.01 Sepsis due to Methicillin susceptible Staphylococcus aureus (principal); J69.0 Pneumonitis due to inhalation of food and vomit; J93.0 Spontaneous tension pneumothorax; J96.20 Acute and chronic respiratory failure, unspecified whether with hypoxia or hypercapnia; J44.0 Chronic obstructive pulmonary disease with (acute) lower respiratory infection; G93.40 Encephalopathy, unspecified; J44.1 Chronic obstructive pulmonary disease with (acute) exacerbation; I47.1 Supraventricular tachycardia; Z99.11 Dependence on respirator [ventilator] status; J20.9 Acute bronchitis, unspecified; K21.9 Gastro-esophageal reflux disease without esophagitis; E11.9 Type 2 diabetes mellitus without complications; I10 Essential (primary) hypertension; F17.210 Nicotine dependence, cigarettes, uncomplicated; E66.01 Morbid (severe) obesity due to excess calories; D50.9 Iron deficiency anemia, unspecified; E78.5 Hyperlipidemia, unspecified; F02.80 Dementia in other diseases classified elsewhere, unspecified severity, without behavioral disturbance, psychotic disturbance, mood disturbance, and anxiety; G20 Parkinson's disease; R56.9 Unspecified convulsions; Z88.0 Allergy status to penicillin; Z87.820 Personal history of traumatic brain injury; Z79.899 Other long term (current) drug therapy
CPT/HCPCS: 36415; 36600; 71045; 74018; 78579; 78580-TC; 80048; 80053; 80202-TC; 82140-TC; 82550-TC; 82803-TC; 82962; 83735-TC; 83880; 84100-TC; 84443-TC; 84484; 85007; 85025; 85027; 87040-TC; 87070-TC; 87081; 87186-TC; 87205-TC; 92610-GN; 92950; 93005; 93306; 93970; 94002; 94003; 94640; 94760; 96374; 97110-GP; 97530-GP; 99285; A9539; A9540; C1751; G0378; J0171; J0330; J1030; J1450; J1644; J1815; J1940; J1956; J2001; J2060; J2185; J2270; J2930; J3370; J3465; J7030; J7050; J7512; J7613; J7620